=== PATIENT | female | born 1975 | race Caucasian/White ===

== ENCOUNTER 2021-06-01 17:11 | Emergency (ER) | payer OTHER, MEDICAID ==
[~2021-06-01] VITALS: Ht 162.6 cm; Wt 86.2 kg
[2021-06-01] MEDS ORDERED: JANTOVEN2.5 MG PO ×2 (17:21→17:22)
[2021-06-01] MEDS ORDERED: NOVOLOG100 UNIT/1 SUBQ (17:22)
[2021-06-01] MEDS ORDERED: BENTYL 10 MG CA10 M1 PO (17:23)
[2021-06-01] MEDS ORDERED: LANTUS SUBQ (17:23)
[2021-06-01] MEDS ORDERED: FLAGYL500 M1 PO (17:23)
[2021-06-01] MEDS ORDERED: PREDNISONE 20 M20 MG PO (17:23)
[2021-06-01] MEDS ORDERED: NORCO7.5 PO (17:24)
[2021-06-01] MEDS ORDERED: HUMALOG100 UNIT/1 SUBQ (17:24)
[2021-06-01] MEDS ORDERED: ATIVAN1 M1 PO (17:24)
[2021-06-01] MEDS ORDERED: GABAPENTIN800 M1 PO (17:25)
[2021-06-01] MEDS ORDERED: PROZAC40 MG PO (17:25)
[2021-06-01] MEDS ORDERED: LUNESTA3 MG PO (17:25)
[2021-06-01 19:13] LABS: URINE BILIRUBIN NEGATIVE (Negative); URINE BLOOD 3+ (Negative); URINE COLOR YELLOW; URINE GLUCOSE-RANDOM NEGATIVE (Negative); URINE KETONES NEGATIVE (Negative); URINE LEUKOCYTES-REFLEX NEGATIVE (Negative); URINE NITRITE-REFLEX NEGATIVE (Negative); URINE PROTEIN NEGATIVE (Negative); URINE SPECIFIC GRAVITY <= 1.005 (1.005-1.030); URINE UROBILINOGEN 0.2 E.U./dl (0.2-1.0)
[2021-06-01 19:14] LABS: URINE CLARITY HAZY
[2021-06-01 19:20] LABS: CASTS None Seen /LPF (None Seen); CRYSTALS None Seen /LPF (None Seen); MUCUS None Seen strn/LPF (None Seen); SQUAMOUS >10 Many /LPF (0-3); URINE RBC >20 Many /HPF (0-2)
[2021-06-01 19:21] LABS: BACTERIA-REFLEX 1-9 Few /HPF (None Seen); URINE WBC-REFLEX None Seen /HPF (0-5)
[2021-06-01 19:59] LABS: AMP/METHAMP Negative (Negative); BARBITURATES Negative (Negative); BENZODIAZEPINES POSITIVE (Negative); COCAINE Negative (Negative); METHADONE Negative (Negative); OPIATES Negative (Negative); PCP Negative (Negative); THC Negative (Negative)
[2021-06-01 20:09] LABS: ABSOLUTE BASOPHILS 0.1 thou/uL (0.0-0.2); ABSOLUTE EOSINOPHILS 0.3 thou/uL (0.0-0.7); ABSOLUTE LYMPHOCYTES 2.2 thou/uL (0.8-5.3); ABSOLUTE MONOCYTES 0.6 thou/uL (0.0-1.2); ABSOLUTE NEUTROPHILS 3.7 thou/uL (1.6-8.1); BASOPHILS 1.4 %; EOSINOPHILS 4.6 %; HEMOGLOBIN 13.3 gm/dL (12.0-15.0); LYMPHOCYTES 31.5 %; MCH 28.7 pg (26.0-34.0); MCHC 33.4 g/dL (28.0-37.0); MCV 85.9 fL (80.0-100.0); MONOCYTES 8.8 %; MPV 8.3 fl. (7.2-11.1); NUCLEATED RBCS 0 /100WBC; PLATELET COUNT* 196 thou/uL (150-400); POLYS 53.7 %; RBC 4.66 mil/uL (4.20-5.00); RDW-CV 16.5 % (10.5-14.5)
[2021-06-01 20:15] LABS: CALCIUM 9.9 mg/dL (8.5-10.1); CREATININE 1.1 mg/dL (0.6-1.3); POTASSIUM 4.2 mmol/L (3.5-5.1)
[2021-06-01 20:17] LABS: PROTIME 11.1 Seconds (9.20-11.50)
[2021-06-01 20:20] LABS: ALBUMIN 4.1 g/dL (3.4-5.0); TOTAL BILIRUBIN 0.3 mg/dL (<0.1-1.0); TOTAL PROTEIN 7.8 g/dL (6.4-8.2)
[2021-06-01] MEDS ORDERED: TRAMADOL 50 MG50 MG PO (23:57)
[2021-06-02 00:06] VITALS: BP 113/82
== END 2021-06-02 00:06 | disposition home or self-care (01) ==
LOC: M.ERS 17:11
PROVIDERS: Emergency Medicine
DX: R10.30 Lower abdominal pain, unspecified (principal); K92.0 Hematemesis; K92.1 Melena; E10.9 Type 1 diabetes mellitus without complications; Z79.899 Other long term (current) drug therapy; Z79.01 Long term (current) use of anticoagulants; Z79.4 Long term (current) use of insulin; Z88.1 Allergy status to other antibiotic agents; Z91.041 Radiographic dye allergy status; Z88.6 Allergy status to analgesic agent; Z88.8 Allergy status to other drugs, medicaments and biological substances

== ENCOUNTER 2021-07-06 14:44 | Emergency (ER) | payer OTHER, MEDICAID ==
[~2021-07-06] VITALS: Ht 162.6 cm; Wt 88.5 kg
[~2021-07-06 14:44] MED LIST: ATIVAN1 M1 PO; BENTYL 10 MG CA10 M1 PO; FLAGYL500 M1 PO; GABAPENTIN800 M1 PO; HUMALOG100 UNIT/1 SUBQ; JANTOVEN2.5 MG PO; LANTUS SUBQ; LUNESTA3 MG PO; NORCO7.5 PO; NOVOLOG100 UNIT/1 SUBQ; PREDNISONE 20 M20 MG PO; PROZAC40 MG PO; TRAMADOL 50 MG50 MG PO
[2021-07-06] MEDS ORDERED: ENOXAPARIN30 MG/0.3 SUBQ (14:52)
[2021-07-06 15:09] LABS: ABSOLUTE BASOPHILS 0.1 thou/uL (0.0-0.2); ABSOLUTE EOSINOPHILS 0.4 thou/uL (0.0-0.7); ABSOLUTE LYMPHOCYTES 1.8 thou/uL (0.8-5.3); ABSOLUTE MONOCYTES 0.5 thou/uL (0.0-1.2); ABSOLUTE NEUTROPHILS 2.9 thou/uL (1.6-8.1); BASOPHILS 1.3 %; EOSINOPHILS 6.6 %; HEMATOCRIT 35.9 % (37.0-47.0); HEMOGLOBIN 11.6 gm/dL (12.0-15.0); LYMPHOCYTES 31.8 %; MCHC 32.3 g/dL (28.0-37.0); MCV 86.6 fL (80.0-100.0); MONOCYTES 9.7 %; MPV 8.3 fl. (7.2-11.1); NUCLEATED RBCS 0 /100WBC; PLATELET COUNT* 162 thou/uL (150-400); POLYS 50.6 %; RBC 4.15 mil/uL (4.20-5.00); RDW-CV 16.3 % (10.5-14.5); WBC 5.7 thou/uL (4.0-11.0)
[2021-07-06 15:22] LABS: CALCIUM 8.6 mg/dL (8.5-10.1); CREATININE 1.3 mg/dL (0.6-1.3); POTASSIUM 4.1 mmol/L (3.5-5.1)
[2021-07-06 15:30] LABS: APTT 34.4 Seconds (25.0-31.3); INR 1.1; PROTIME 11.3 Seconds (9.20-11.50)
[2021-07-06 15:32] LABS: ALBUMIN 3.2 g/dL (3.4-5.0); MAGNESIUM 1.6 mg/dL (1.8-2.4); TOTAL BILIRUBIN 0.3 mg/dL (<0.1-1.0); TOTAL PROTEIN 6.7 g/dL (6.4-8.2)
[2021-07-06 15:48] VITALS: BP 155/83
--- NOTE | 2021-07-06 16:00 | EKG ---
[place] [address] ELECTROCARDIOGRAM REPORT Name: CJ SCHMIDT Km Room: [facility]#: [id number] Admission: 07/06/21 Attend Phys: Discharge: 07/06/21 Date of : 73 Date of Service: 07/06/21 1451 Report #: [id number] THIS REPORT FOR: //name// [facility] ED Test Date: 2021-07-06 Test Time: 14:51:09 Pat Name: CJ SCHMIDT Department: Room: Gender: Bank President: : 1975 Requested By: Logan Merchant Order Number: [id number] MD: Artur Garcia Measurements Intervals Keiser Rate: 87 P: 31 MD: 148 QRS: 33 QRSD: 77 T: 56 QT: 402 QTc: 484 Interpretive Statements Sinus rhythm Low voltage, precordial leads Borderline T abnormalities, anterior leads No previous ECG available for comparison Electronically Signed On 07-06-2021 15:59:58 [employer]PER[employer]ENT SERV[employer] by Artur Garcia [email or web address] <ELECTRONICALLY SIGNED> By: Artur Garcia MD, [facility] 07/06/21 1559 1451 1451 Artur Garcia MD, [facility] /EPI
== END 2021-07-06 15:50 | disposition home or self-care (01) ==
LOC: M.ERS 14:44
PROVIDERS: Family Medicine
DX: S30.1XXA Contusion of abdominal wall, initial encounter (principal); R07.89 Other chest pain; R11.0 Nausea; E10.9 Type 1 diabetes mellitus without complications; R20.2 Paresthesia of skin; F17.210 Nicotine dependence, cigarettes, uncomplicated; Z86.73 Personal history of transient ischemic attack (TIA), and cerebral infarction without residual deficits; Z86.718 Personal history of other venous thrombosis and embolism; Z86.711 Personal history of pulmonary embolism; Z79.01 Long term (current) use of anticoagulants; Z79.4 Long term (current) use of insulin; Z79.899 Other long term (current) drug therapy; X58.XXXA Exposure to other specified factors, initial encounter; Y93.89 Activity, other specified; Y92.89 Other specified places as the place of occurrence of the external cause; Y99.8 Other external cause status